=== PATIENT | female | born 1980 | race Caucasian/White ===

== ENCOUNTER 2024-09-30 19:20 | Emergency (ER) | payer OTHER ==
[~2024-09-30] VITALS: Ht 160 cm; Wt 54.4 kg
[2024-09-30 21:24] VITALS: BP 110/70; TEMP 98; O2SAT 99
== END 2024-09-30 21:25 | disposition home or self-care (01) ==
LOC: ER 19:29
DX: S06.0XAA Concussion with loss of consciousness status unknown, initial encounter (principal); F17.200 Nicotine dependence, unspecified, uncomplicated; Z88.0 Allergy status to penicillin; Z88.5 Allergy status to narcotic agent; X58.XXXA Exposure to other specified factors, initial encounter; Y93.41 Activity, dancing; Y92.89 Other specified places as the place of occurrence of the external cause; Y99.8 Other external cause status